=== PATIENT | male | born 1955 | race Caucasian/White ===

== ENCOUNTER 2024-04-28 15:07 | Emergency (ER) | payer MEDICARE ==
[2024-04-28] MEDS: BACITRACIN ZINC OINT 1 PACKET TOP STA (16:13)
--- NOTE | 2024-04-28 16:32 | XRAY Report ---
PROCEDURE: Hand 3+V LT INDICATIONS: fall TECHNIQUE: 3 views of the hand(s) acquired. COMPARISON: X-ray forearm 04/28/2020 FINDINGS: Bones: No fractures or dislocations. No suspicious bony lesions. Soft tissues: No suspicious soft tissue calcifications or masses. IMPRESSION: No visualized acute fracture or dislocation. However, occult injury cannot be excluded. Recommend yasir rt interval imaging follow-up in 7-10 days as clinically indicated for additional evaluation. Reviewed by: Alannah Garcia MD on 04/28/2024 4:31 PM PDT Approved by: Alannah Garcia MD on 04/28/2024 4:31 PM PDT Station ID: [id number]
--- NOTE | 2024-04-28 16:32 | XRAY Report ---
PROCEDURE: Forearm LT INDICATIONS: fall TECHNIQUE: 2 views of the forearm were acquired. COMPARISON: X-ray hand 04/28/2024 FINDINGS: Bones: No fractures or dislocations. No suspicious bony lesions. Soft tissues: No suspicious soft tissue calcifications or masses. IMPRESSION: No visualized acute fracture or dislocation. However, occult injury cannot be excluded. Recommend yasir rt interval imaging follow-up in 7-10 days as clinically indicated for additional evaluation. Reviewed by: Alannah Garcia MD on 04/28/2024 4:31 PM PDT Approved by: Alannah Garcia MD on 04/28/2024 4:31 PM PDT Station ID: [id number]
--- NOTE | 2024-04-28 16:52 | ED Physician Documentation ---
History of Present Illness - Stated complaint Stated Complaint: L ARM LAC,HEAD LAC,GLF - Chief complaint Chief Complaint: Trauma Hd/Nk - History obtained from History obtained from: Patient - Additonal information Additional information: 68-year-old male presents with several abrasion lacerations and contusions after a ground-level fall. The patient was walking on some [place] and slipped and fell. He fell onto his Left arm and bumped the left side of the forehead on the ground, and also sustained an abrasion on the back of the right leg and the forearm. He states there is no loss of consciousness, he was able to get up and ambulate, he denies any hip or pelvis pain, no lower extremity bony injuries. He has some tenderness to the left mid forearm and left hand. He is not on any anticoagulation. His mentation has been normal since incident, no confusion or alteration in mental status, no agitation no repetitive questioning, no ataxia or vomiting. Review of Systems Constitutional: reports: Reviewed and negative Eyes: reports: Reviewed and negative Ears: reports: Reviewed and negative Nose: reports: Reviewed and negative Cardiac: reports: Reviewed and negative Respiratory: reports: Reviewed and negative GI: reports: Reviewed and negative : reports: Reviewed and negative Skin: reports: Abrasion (s) Musculoskeletal: reports: Extremity pain Neurologic: reports: Head injury. denies: Generalized weakness, Focal weakness, Numbness, Difficulty speaking, Near syncope, Syncope, Seizure, Confused, Altered mental status, Unresponsive, Headache, LOC PD PAST MEDICAL HISTORY - Past Medical History Past Medical History: Yes Cardiovascular: Hypertension Neuro: Peripheral neuropathy - Past Surgical History Past Surgical History: No Ortho: Spine surgery - Allergies Allergies/Adverse Reactions: Allergies Allergy/AdvReac Type Severity Reaction Status Date / Time No Known Drug Allergies Allergy Verified 04/28/24 15:58 - Social History Does the pt smoke?: No Smoking Status: Never smoker Does the pt drink ETOH?: No Does the pt have substance abuse?: No PD ED PE NORMAL - Vitals Vital signs reviewed: Yes - General General: Alert and oriented X 3, No acute distress, Well developed/nourished - HEENT HEENT: PERRL, EOMI, Other (There is a hematoma over the left eyebrow with slight overlying abrasion. No other scalp injuries.) - Neck Neck: Supple, no meningeal sign, C-Spine cleared by NEXUS criteria - Cardiac Cardiac: RRR, No murmur - Respiratory Respiratory: No respiratory distress, Clear bilaterally - Derm Derm: Normal color, Warm and dry, Other (There are abrasions on the left side of the forehead, left forearm and hand, and behind the right ankle. No lacerations requiring closure.) - Extremities Extremities: Other (There is tenderness and swelling of the mid left forearm and tenderness in the left second third and fourth fingers without obvious deformity.) - Neuro Neuro: Alert and oriented X 3, No motor deficit, No sensory deficit, Normal speech Eye Opening: To Voice Verbal: Oriented Results - Vitals Vitals: Vital Signs - 24 hr 04/28/24 04/28/24 15:15 16:57 Temperature 37.0 C Heart Rate 95 72 Respiratory 18 20 Rate Blood Pressure 153/84 H 142/75 H O2 Saturation 96 98 Oxygen O2 Source Room air - Rads (name of study) No standard instances Relevant Findings:: Final report received PD Medical Decision Making - ED course Complexity details: reviewed results, considered differential ED course: 68-year-old male presented after a fall as described in HPI. He has a number of light abrasions on the left forehead, left forearm and hand, and behind the right ankle calf area. None of these require suture closure, they were all cleaned and dressed by the nurse. He does have a large hematoma just above the left eyebrow but is not exhibiting any signs of acute concussion or closed head injury, and I do not feel that CT scan is indicated today and patient agrees but I did review return precautions if he should have any change in mentation, confusion, ataxia or new concerns. We did image the left forearm and left hand as patient had some swelling and discomfort in this area, there are no acute fractures but he likely has some sprain and soft tissue contusion. Recommended cool compress, light compression, Tylenol and ibuprofen as needed. He is advised to return if any new or worsening symptoms, keep the wound clean with gentle soap and water and otherwise apply bacitracin, and he can follow-up with his primary doctor as needed or return to the ER if worsening. Departure - Departure Disposition: 01 Home, Self Care Clinical Impression: Abrasions of multiple sites Scalp hematoma Qualifiers: Encounter type: initial encounter Qualified Code(s): S00.03XA - Contusion of scalp, initial encounter Condition: Good Instructions: ED Abrasion, ED Hematoma Comments: You sustained abrasions of multiple areas including her forehead, hand and leg. These do not require any suturing or stitches but I do recommend that you keep them clean and put a bacitracin dressing on them. If any signs of infection return for follow-up. On your forehead, you do have a hematoma which is a collection of blood between the skin and bone. This will slowly dissipate over the next days to weeks, and you can use a cool compress on this area to help with swelling. There are no signs of broken bones in your hand or forearm on x- ray. If you have any change in mental status, please return to the ER. Forms: PCP List Discharge Date/Time: 04/28/24 16:58
[2024-04-28 17:02] VITALS: BP 142/75; O2SAT 98
== END 2024-04-28 16:58 | disposition home or self-care (01) ==
LOC: ED 15:07
DX: S00.03XA Contusion of scalp, initial encounter (principal); S00.81XA Abrasion of other part of head, initial encounter; S60.512A Abrasion of left hand, initial encounter; S50.812A Abrasion of left forearm, initial encounter; S80.812A Abrasion, left lower leg, initial encounter; S90.512A Abrasion, left ankle, initial encounter; W01.0XXA Fall on same level from slipping, tripping and stumbling without subsequent striking against object, initial encounter; Y93.01 Activity, walking, marching and hiking; I10 Essential (primary) hypertension
CPT/HCPCS: 99283